=== PATIENT | female | born 1970 | race Caucasian/White ===

== ENCOUNTER 2017-12-07 04:18 | Emergency (ER) | payer BC ==
[2017-12-07 04:38] VITALS: BMI 26.9
[2017-12-07 04:49] LABS: HCG,QUALITATIVE URINE NEGATIVE (NEGATIVE)
[2017-12-07] MEDS ORDERED: Sodium Chloride 0.9% 1,000 ML IV ONE (04:50)
--- NOTE | 2017-12-07 04:50 | C.PDOC ---
History Of Present Illness Patient presents with nausea and vomiting since am. Ate her usual breakfast, after which preceded to have about 6 episodes of emesis. Not tolerating PO. No f /c/ Time Seen by Provider: 12/07/17 04:49 Chief Complaint (Nursing): ENT Problem History Per: Patient History/Exam Limitations: no limitations Onset/Duration Of Symptoms: Hrs Current Symptoms Are (Timing): Still Present Context: Other Severity: Moderate Pain Scale Rating Of: 4 Location Of Pain/Discomfort: Diffuse Radiation Of Pain To:: None Associated Symptoms: Nausea, Vomiting. denies: Fever, Chills, Diarrhea Exacerbating Factors: None Alleviating Factors: None Last Bowel Movement: Yesterday Recent travel outside of the [place]: No Additional History Per: Patient Abnormal Vaginal Bleeding: No Past Medical History Reviewed: Historical Data, Nursing Documentation, Vital Signs Vital Signs: Last Vital Signs Temp 98.6 F 12/07/17 05:50 Pulse 66 12/07/17 05:50 Resp 16 12/07/17 05:50 BP 128/84 12/07/17 05:50 Pulse Ox 98 12/07/17 05:50 - Medical History PMH: Anxiety, Asthma, Hiatal Hernia (scheduled for surgery) Denies: Chronic Kidney Disease Surgical History: Tonsillectomy Family History: States: No Known Family Hx - Social History Hx Tobacco Use: No Hx Alcohol Use: No Hx Substance Use: No - Immunization History Hx Tetanus Toxoid Vaccination: No Hx Influenza Vaccination: No Hx Pneumococcal Vaccination: No Review Of Systems Constitutional: Negative for: Fever, Chills Cardiovascular: Negative for: Chest Pain Respiratory: Negative for: Shortness of Breath Gastrointestinal: Positive for: Nausea, Vomiting, Abdominal Pain Genitourinary: Negative for: Dysuria Musculoskeletal: Negative for: Back Pain Skin: Negative for: Rash Neurological: Negative for: Weakness Psych: Negative for: Anxiety Physical Exam - Physical Exam Appears: Non-toxic Skin: Warm, Dry Head: Normacephalic Eye(s): bilateral: Normal Inspection Oral Mucosa: Dry Neck: Supple Chest: Symmetrical Cardiovascular: Rhythm Regular Respiratory: No Rales, No Rhonchi, No Wheezing Gastrointestinal/Abdominal: Soft, Tenderness (diffuse), Distention (umbilical reducible hernia), No Guarding, No Rebound, Hernia Extremity: Normal ROM Extremity: Bilateral: Atraumatic Neurological/Psych: Oriented x3 Gait: Steady ED Course And Treatment - Laboratory Results Result Diagrams: 12/07/17 05:06 12/07/17 05:06 O2 Sat by Pulse Oximetry: 95 Pulse Ox Interpretation: Normal Disposition Counseled Patient/Family Regarding: Studies Performed, Diagnosis - Disposition Disposition Time: 04:50 Condition: FAIR Forms: [facility] (Persian) - Clinical Impression Clinical Impression: Abdominal pain, Nausea and vomiting Physician Patient Turnover Patient Signed Over To: Perlita Bhat Handoff Comments: pending ct results, re-eval and disposition
[2017-12-07] MEDS ORDERED: Sodium Chloride 0.9% 1,000 ML ONE (04:54)
[2017-12-07 05:02] LABS: SQUAMOUS EPITHIAL 11 /hpf (0-5); URINE BACTERIA RARE (<OCC); URINE BILIRUBIN NEGATIVE (NEGATIVE); URINE CLARITY Hazy (Clear); URINE COLOR Yellow (YELLOW); URINE GLUCOSE (UA) NORMAL (Normal); URINE LEUKOCYTE ESTERASE 3+ Leu/uL (Negative); URINE PROTEIN NEGATIVE (NEGATIVE); URINE UROBILINOGEN NORMAL mg/dL (0.2-1.0)
[2017-12-07 05:12] LABS: BASO # 0.1 K/uL (0.0-0.2); BASO % 0.6 % (0.0-2.0); EOS # 0.1 K/uL (0.0-0.7); EOS % 1.1 % (0.0-4.0); HEMOGLOBIN 11.2 g/dL (11.0-16.0); LYMPH # 1.6 K/uL (1.0-4.3); LYMPH % 16.8 % (20.0-40.0); MEAN CORPUSCULAR HEMOGLOBIN 22.3 pg (27.0-31.0); MEAN PLATELET VOLUME 7.6 fL (7.2-11.7); MONO # 0.9 K/uL (0.0-0.8); MONO % 9.2 % (0.0-10.0); NEUT # 6.7 K/uL (1.8-7.0); NEUT % 72.3 % (50.0-75.0); RED CELL DISTRIBUTION WIDTH 18.8 % (11.5-14.5); WHITE BLOOD COUNT 9.3 K/uL (4.8-10.8)
[2017-12-07 05:12] LABS: URINE BLOOD TRACE (NEGATIVE)
[2017-12-07 05:19] LABS: INR 1.1; PROTHROMBIN TIME 11.5 SECONDS (9.7-12.2)
[2017-12-07 05:26] LABS: ALB/GLOB RATIO 1.4 (1.0-2.1); ALBUMIN 4.9 g/dL (3.5-5.0); ALT/SGPT 17 U/L (9-52); AST/SGOT 17 U/L (14-36); BLOOD UREA NITROGEN 10 mg/dL (7-17); CALCIUM 9.1 mg/dl (8.6-10.4); GFR AFRICAN-AMERICAN > 60; GFR NON-AFRICAN AMERICAN > 60; LIPASE 124 U/L (23-300)
[2017-12-07 05:50] VITALS: TEMP 98.6
[2017-12-07] MEDS ORDERED: Iodixanol 320 MG/ML 100 ML BOTTLE IV ONE (06:12)
--- NOTE | 2017-12-07 07:28 | CT ---
EXAM: CT Abdomen and Pelvis With Intravenous Contrast EXAM DATE/TIME: 12/07/2017 5:52 AM CLINICAL HISTORY: 47 years old, female; Pain and condition or disease; Hernia; Abdominal pain and other: N/v large umbilical hernia; Patient HX: 03-09-14 TECHNIQUE: Axial computed tomography images of the abdomen and pelvis with intravenous contrast. All CT scans at this facility use one or more dose reduction techniques, viz.: automated exposure control; ma/kV adjustment per patient size (including targeted exams where dose is matched to indication; i.e. head); or iterative reconstruction technique. Coronal and sagittal reformatted images were created and reviewed. CONTRAST: 100 mL of [id number] administered intravenously. COMPARISON: Prior CT abdomen and pelvis of 2014-03-09 FINDINGS: LUNG BASES: No significant abnormality seen. ABDOMEN: LIVER: No acute abnormality of the liver identified. GALLBLADDER AND BILE DUCTS: No CT evidence of acute cholecystitis. No evidence of significant biliary ductal dilatation. PANCREAS: No CT evidence of acute pancreatitis. SPLEEN: No acute abnormality of the spleen identified. ADRENALS: No acute abnormality of the adrenal glands identified. KIDNEYS AND URETERS: Incidental fluid density probable cystic left renal lesion, measuring less than 10 mm. Consistent with the [employer]?s Incidental Findings Committee Report, unless the patient?s specific circumstances suggest otherwise, any cystic kidney lesion less than 1.0 cm not otherwise characterized in this report as possessing suspicious or indeterminate imaging features is/are highly likely to be benign and do not require follow-up imaging or biopsy. No evidence of hydroureteronephrosis. STOMACH AND BOWEL: No acute abnormality of the stomach, small bowel or colon identified. No evidence of bowel obstruction. PELVIS: APPENDIX: Normal appendix is not seen, however, there are no significant inflammatory changes visualized in the expected location of the appendix to suggest appendicitis. Recommend clinical correlation. BLADDER: No acute abnormality of the bladder identified. REPRODUCTIVE: As on the prior study, the uterus is markedly enlarged, extending into the lower abdomen. It contains multiple mostly rounded masses of varying sizes, most compatible with extensive fibroids. The largest of these is a 13 x 10 cm heterogeneously enhancing fibroid in the upper uterus. Findings appear grossly stable. Interval development of bilateral cystic ovarian lesions. The larger of these, on the right, measures 4.5 x 3 cm. It has a density mildly higher than expected for simple cysts, and could represent a mildly complex cyst. There are tubular, fluid density areas paralleling and abutting the ovarian vessels bilaterally, a new finding of uncertain etiology, but could represent dilated lymphatics abutting the ovarian veins. ABDOMEN and PELVIS: INTRAPERITONEAL SPACE: No evidence of free intraperitoneal air or fluid. BONES/JOINTS: No acute fractures or other acute bony abnormality noted. SOFT TISSUES: Periumbilical hernia, located above the umbilicus in the midline, containing fluid, fat and vessels. This has enlarged in size since the prior study, now measuring 7.5 x [address] findings to suggest hernia incarceration, although clinical exam is more sensitive for detection of hernia incarceration. No evidence of bowel herniation. VASCULATURE: No evidence of abdominal aortic aneurysm. No evidence of periaortic hemorrhage. LYMPH NODES: No evidence of diffuse lymphadenopathy. IMPRESSION: - No evidence of significant acute process. - Periumbilical hernia, containing fluid but no bowel, enlarged compared to a previous CT, measuring 7.5 cm. - Markedly enlarged uterus, containing extensive fibroids. Appearance is similar to a prior CT. - Bilateral cystic ovarian lesions, the larger, on the right, measuring 4.5 cm, and suspected to be mildly complex by CT. Pelvic ultrasound is recommended for further evaluation, on a nonemergent basis. - See above for remaining findings.
[2017-12-07 07:45] VITALS: BP 129/82; PULSE 67; RESP 18; O2SAT 96
== END 2017-12-07 07:46 | disposition home or self-care (01) ==
LOC: C.ER 04:18
DX: K42.9 Umbilical hernia without obstruction or gangrene (principal); R10.9 Unspecified abdominal pain; R11.2 Nausea with vomiting, unspecified
CPT/HCPCS: 74177; 80053; 81001; 83690; 84703; 85025; 85610; 85730; 96361; 96374; 99285; J2405; J7030; Q9967